=== PATIENT | female | born 1955 | race African-American/Black ===

== ENCOUNTER → 2016-10-15 | Outpatient (CLI) | payer OTHER ==
[2015-05-26 18:12] VITALS: BP 142/91
[~2016-10-15] MED LIST: CLOP75TA PO; GABA600T PO; LISI40TA PO; METO25TA9 PO; NAPR500T3 PO
--- NOTE | 2016-10-15 15:19 | RAD ---
Chest, 2 views, 10/15/2016: History: Cough, COPD Comparison is made to a study from 01/06/2014. The heart size and pulmonary vascularity are normal. A coronary stent is projected over the anterior aspect of the heart. No pulmonary infiltrates are seen. There is no evidence of pleural fluid. IMPRESSION: 1. Coronary artery disease. 2. No acute cardiopulmonary abnormality is detected.
== END | disposition home or self-care (01) ==
LOC: RAD 08:58
PROVIDERS: ATTEND Pediatrics
DX: J44.9 Chronic obstructive pulmonary disease, unspecified (principal); I25.10 Atherosclerotic heart disease of native coronary artery without angina pectoris
CPT/HCPCS: 71020

== ENCOUNTER → 2016-12-17 | Day surgery (SDC) | payer OTHER ==
[~2016-12-17] MED LIST changes: +ALBU0.63 NEB; +ALBUTEROL SULFATE 2.5 MG/3 ML NEBU. IH ONE; +ALBUTEROL SULFATE 2.5 MG/3 ML NEBU. ONE; +ASPI-630 PO; +CYCL10TA2 PO; +HYDR-2762 PO; +HYDR12.58 PO; +IV RINGERS,LACTATED 1000ML 1,000 ML IV SCH; +LIDOCAINE 1% PF 2 ML VIAL. ID PRN; +METO-239 PO; -METO25TA9 PO; +MIDAZOLAM HCL/PF 2 MG/2 ML VIAL. IV PRN; +PROVENTIL HFA6.7 GM IH; +ePHEDrine PF IN SALINE 50 MG/5 ML DISP.SYRIN IV ONE; +fentaNYL PF VIAL 100 MCG/2 ML VIAL IV PRN
[2016-12-17 11:33] LABS: BASO % 1 % (0-3); EOS % 3 % (0-3); HEMATOCRIT 35.8 % (36.0-47.0); HEMOGLOBIN 11.9 g/dL (12.0-15.5); LYMPH # 1.8 x10^3/uL (1.0-4.8); LYMPH % 45 % (24-48); MEAN CORPUSCULAR HEMOGLOBIN 29 pg (25-35); MEAN CORPUSCULAR HGB CONC 33 g/dL (31-37); MEAN CORPUSCULAR VOLUME 87 fL (79-100); MONO % 11 % (0-9); NEUT % 41 % (31-73); PLATELET COUNT 232 x10^3/uL (140-400); RED BLOOD COUNT 4.13 x10^6/uL (3.50-5.40); RED CELL DISTRIBUTION WIDTH 15.7 % (11.5-14.5); WHITE BLOOD COUNT 4.1 x10^3/uL (4.0-11.0)
[2016-12-17 11:43] LABS: PROTHROMBIN TIME PATIENT 12.1 SEC (11.7-14.0)
[2016-12-17 13:15] VITALS: BP 132/85
--- NOTE | 2016-12-17 14:09 | OP ---
DATE OF SURGERY: 12/17/2016 ATTENDING PHYSICIAN: Guera Bateman MD PROCEDURE: Bronchoscopy, bronchoalveolar lavage. INDICATIONS: The patient with recurrent bronchiectasis, undergoing diagnostic bronchoscopy. Risks, benefits and alternatives reviewed with the patient, she consented. DESCRIPTION OF PROCEDURE: Timeout was performed prior to sedation. Vital signs and O2 saturations were maintained within normal limits throughout the procedure. The patient underwent IV titration of Diprivan under anesthesia direction. The patient was sedated with the above medication. Vital signs and O2 saturations were maintained within normal limits throughout the procedure. The bronchoscope was passed through the right naris. The vocal cords were identified moving bilaterally without any dysfunction. There was no evidence of subglottic stenosis. The trachea was normal. The proximal and distal bronchial tubes were ____ inspected. There was no endobronchial lesion. The scope was wedged into the right middle lobe and then bronchoalveolar lavage was performed. The return was clear. FINDINGS: 1. Normal vocal cords. 2. No mucus plugging. 3. No endobronchial lesions. PLAN: We will await the BAL results. The patient is to follow up with Dr. Blevins in the office. KATHIA LEONARDO MD DR: LUCIA/echo JOB#: [id number] / [id number]
== END | disposition home or self-care (01) ==
LOC: SURG 10:54
PROVIDERS: ATTEND Internal Medicine Pulmonary Disease
DX: J47.9 Bronchiectasis, uncomplicated (principal); E78.00 Pure hypercholesterolemia, unspecified; I10 Essential (primary) hypertension; K21.9 Gastro-esophageal reflux disease without esophagitis; F41.9 Anxiety disorder, unspecified; F32.9 Major depressive disorder, single episode, unspecified; D64.9 Anemia, unspecified; J45.909 Unspecified asthma, uncomplicated; Z86.69 Personal history of other diseases of the nervous system and sense organs; Z87.440 Personal history of urinary (tract) infections; Z87.39 Personal history of other diseases of the musculoskeletal system and connective tissue; Z88.0 Allergy status to penicillin; Z88.8 Allergy status to other drugs, medicaments and biological substances; Z79.01 Long term (current) use of anticoagulants
CPT/HCPCS: 31624; 36415; 85025; 85610; 85730; 87205; 94640; J7613; 31622

== ENCOUNTER → 2017-01-11 | Outpatient (CLI) | payer OTHER ==
[2016-12-17 13:15] VITALS: BP 132/85
[~2017-01-11] MED LIST changes: -ALBUTEROL SULFATE 2.5 MG/3 ML NEBU. IH ONE; -ALBUTEROL SULFATE 2.5 MG/3 ML NEBU. ONE; -IV RINGERS,LACTATED 1000ML 1,000 ML IV SCH; -LIDOCAINE 1% PF 2 ML VIAL. ID PRN; -MIDAZOLAM HCL/PF 2 MG/2 ML VIAL. IV PRN; -NAPR500T3 PO; +NAPR500T4 PO; -ePHEDrine PF IN SALINE 50 MG/5 ML DISP.SYRIN IV ONE; -fentaNYL PF VIAL 100 MCG/2 ML VIAL IV PRN
--- NOTE | 2017-01-11 16:19 | RAD ---
Indication hemoptysis. Noncontrast imaging through the chest was performed. No prior CT imaging of the chest is available. Imaging through the upper abdomen shows no acute finding. There is cholelithiasis. The thoracic aorta is grossly unremarkable. There is some coronary artery calcification. Significant mediastinal or hilar adenopathy is not seen. An acute parenchymal infiltrate is not seen. There is no dominant soft tissue mass. There is minimal scarring in the right middle lobe having an appearance similar to an examination 11/27/2008. IMPRESSION: No acute or significant finding seen in the chest Minimal scarring in the right middle lobe PQRS Compliance Statement: One or more of the following individualized dose reduction techniques were utilized for this examination: 1. Automated exposure control 2. Adjustment of the mA and/or kV according to patient size 3. Use of iterative reconstruction technique
== END | disposition home or self-care (01) ==
LOC: CT 13:01
PROVIDERS: ATTEND Internal Medicine Pulmonary Disease
DX: K80.20 Calculus of gallbladder without cholecystitis without obstruction (principal); I25.10 Atherosclerotic heart disease of native coronary artery without angina pectoris; R04.2 Hemoptysis
CPT/HCPCS: 71250

== ENCOUNTER → 2017-11-12 | Outpatient (CLI) | payer OTHER ==
[2016-12-17 13:15] VITALS: BP 132/85
[~2017-11-12] MED LIST changes: +LISI-130 PO; -LISI40TA PO; +NAPR-514 PO; -NAPR500T4 PO
--- NOTE | 2017-11-12 15:52 | RAD ---
EXAM: Right elbow 2 views DATE: 11/12/2017 1:36 PM INDICATION: right sided elbow pain that extends to the hand for 1 month progressively worsening COMPARISON: No Prior FINDINGS/ IMPRESSION: No evidence of acute fracture or dislocation. Right elbow joint degenerative changes are seen with joint space narrowing, subchondral cystic change and osteophytes. No elbow joint effusion. Decreased bone mineral density. Electronically signed by: Yuniel Franco MD (11/12/2017 3:50 PM) [id number]
== END | disposition home or self-care (01) ==
LOC: RAD 13:02
PROVIDERS: ATTEND Pediatrics
DX: M19.021 Primary osteoarthritis, right elbow (principal); I25.2 Old myocardial infarction; I10 Essential (primary) hypertension; K21.9 Gastro-esophageal reflux disease without esophagitis; E78.5 Hyperlipidemia, unspecified; E78.00 Pure hypercholesterolemia, unspecified; D64.9 Anemia, unspecified; J44.9 Chronic obstructive pulmonary disease, unspecified; F41.9 Anxiety disorder, unspecified; F32.9 Major depressive disorder, single episode, unspecified; Z72.0 Tobacco use; Z79.01 Long term (current) use of anticoagulants; Z82.49 Family history of ischemic heart disease and other diseases of the circulatory system; Z80.1 Family history of malignant neoplasm of trachea, bronchus and lung; Z88.0 Allergy status to penicillin; Z88.8 Allergy status to other drugs, medicaments and biological substances
CPT/HCPCS: 73070

== ENCOUNTER → 2017-12-02 | Outpatient (CLI) | payer OTHER ==
[2016-12-17 13:15] VITALS: BP 132/85
[2017-12-02 12:51] LABS: BASO % 1 % (0-3); EOS # 0.1 x10^3/uL (0.0-0.7); EOS % 4 % (0-3); HEMATOCRIT 40.3 % (36.0-47.0); HEMOGLOBIN 13.8 g/dL (12.0-15.5); LYMPH # 1.5 x10^3/uL (1.0-4.8); LYMPH % 40 % (24-48); MEAN CORPUSCULAR HEMOGLOBIN 30 pg (25-35); MEAN CORPUSCULAR HGB CONC 34 g/dL (31-37); MEAN CORPUSCULAR VOLUME 89 fL (79-100); MONO # 0.4 x10^3/uL (0.0-1.1); MONO % 10 % (0-9); NEUT # 1.7 x10^3uL (1.8-7.7); NEUT % 44 % (31-73); PLATELET COUNT 214 x10^3/uL (140-400); RED BLOOD COUNT 4.52 x10^6/uL (3.50-5.40); RED CELL DISTRIBUTION WIDTH 15.3 % (11.5-14.5); WHITE BLOOD COUNT 3.8 x10^3/uL (4.0-11.0)
[2017-12-02 13:11] LABS: ALBUMIN 3.6 g/dL (3.4-5.0); ALBUMIN/GLOBULIN RATIO 0.8 (1.0-1.7); CALCIUM 8.7 mg/dL (8.5-10.1); CREATININE 0.9 mg/dL (0.6-1.0); POTASSIUM 4.2 mmol/L (3.5-5.1); TOTAL BILIRUBIN 0.4 mg/dL (0.2-1.0); TOTAL PROTEIN 7.9 g/dL (6.4-8.2)
[2017-12-02 13:13] LABS: CHOLESTEROL/HDL RATIO 7.7
[2017-12-02 13:21] LABS: FREE T4 0.94 ng/dL (0.76-1.46); THYROID STIM HORMONE (TSH) 1.485 uIU/mL (0.358-3.74)
== END | disposition home or self-care (01) ==
LOC: LAB 12:22
PROVIDERS: ATTEND Pediatrics
DX: E78.2 Mixed hyperlipidemia (principal); I25.2 Old myocardial infarction; E78.00 Pure hypercholesterolemia, unspecified; J44.9 Chronic obstructive pulmonary disease, unspecified; I10 Essential (primary) hypertension; Z95.5 Presence of coronary angioplasty implant and graft; Z87.440 Personal history of urinary (tract) infections; Z87.39 Personal history of other diseases of the musculoskeletal system and connective tissue; Z86.69 Personal history of other diseases of the nervous system and sense organs; Z88.0 Allergy status to penicillin; Z88.8 Allergy status to other drugs, medicaments and biological substances; Z80.1 Family history of malignant neoplasm of trachea, bronchus and lung; Z82.49 Family history of ischemic heart disease and other diseases of the circulatory system
CPT/HCPCS: 36415; 80053; 80061; 84439; 84443; 85025

== ENCOUNTER → 2017-12-03 | Outpatient (CLI) | payer OTHER ==
[2016-12-17 13:15] VITALS: BP 132/85
--- NOTE | 2017-12-03 17:24 | KCIC ---
Examination: DEXA scan HISTORY: History of postmenopausal COMPARISON: None available FINDINGS: The bone mineral density in the lumbar spine is 0.875 g/sq cm with a T score of -1.6 and a Z score of -0.9. The bone mineral density in the distal forearm is 0.508 g/sq cm with a T score of -1.1 and a Z score of 0.3. IMPRESSION: The bone mineral density in the lumbar spine and in the distal forearm is osteopenia. Electronically signed by: Tc Rodrigues MD (12/03/2017 5:20 PM) [id number]
== END | disposition home or self-care (01) ==
LOC: KCIC DEXA 12:07
PROVIDERS: ATTEND Pediatrics
DX: Z13.820 Encounter for screening for osteoporosis (principal); M85.89 Other specified disorders of bone density and structure, multiple sites; K21.9 Gastro-esophageal reflux disease without esophagitis; I25.2 Old myocardial infarction; I10 Essential (primary) hypertension; E78.00 Pure hypercholesterolemia, unspecified; F41.9 Anxiety disorder, unspecified; E78.2 Mixed hyperlipidemia; Z88.0 Allergy status to penicillin; Z78.0 Asymptomatic menopausal state; Z88.8 Allergy status to other drugs, medicaments and biological substances; Z79.01 Long term (current) use of anticoagulants; Z82.49 Family history of ischemic heart disease and other diseases of the circulatory system; Z80.1 Family history of malignant neoplasm of trachea, bronchus and lung; Z87.440 Personal history of urinary (tract) infections; Z87.39 Personal history of other diseases of the musculoskeletal system and connective tissue; Z86.69 Personal history of other diseases of the nervous system and sense organs
CPT/HCPCS: 77080; 77081

== ENCOUNTER 2019-07-02 05:46 | Emergency (ER) | payer MEDICAID, OTHER ==
[~2019-07-02] VITALS: Ht 160 cm; Wt 91.0 kg
[~2019-07-02 05:46] MED LIST changes: -HYDR-2762 PO; +HYDR-2765 PO
[2019-07-02 05:57] VITALS: BP 194/108
--- NOTE | 2019-07-02 06:53 | PHYS DOC ---
Past Medical History Past Medical History: Asthma, High Cholesterol, Heart Disease, Hypertension, Other Additional Past Medical Histor: ? MS,CHRONIC PAIN Past Surgical History: Angioplasty, Other Additional Past Surgical Histo: angioplasty 2011& cardiac stents 2008 (MULTIPLE),CYSTS OVARY & BREASTS Smoking Status: Current Every Day Smoker Alcohol Use: None Drug Use: None General Adult EDM: Chief Complaint: MECHANICAL FALL HPI: HPI: Patient is a 63 year old female with history of hypertension, dyslipidemia, asthma, heart disease, chronic pain who presents via EMS with complaining of fall and ankle pain. Patient states she missed stepped last night and on 1999 and had a fall from 1 stair and landed on left ankle and complaining of pain in her ankle since the injury that did not get better with applying ice and heat and abstain salt. Patient rated her pain 10/10 and denies focal neuro deficit and loss of consciousness. Patient complaining of left ribs pain since injury and rated her pain 6/10 without shortness of breath, fever and chills, cough, nausea and vomiting. Review of Systems: Review of Systems: Constitutional: Denies fever or chills. [] Eyes: Denies change in visual acuity. [] HENT: Denies nasal congestion or sore throat. [] Respiratory: Denies cough or shortness of breath. [] Cardiovascular: Reports chest wall pain GI: Denies abdominal pain, nausea, vomiting, bloody stools or diarrhea. [] : Denies dysuria. [] Musculoskeletal: Denies back pain, reports joint pain. [] Integument: Denies rash. [] Neurologic: Denies headache, focal weakness or sensory changes. [] Endocrine: Denies polyuria or polydipsia. [] Lymphatic: Denies swollen glands. [] Psychiatric: Denies depression or anxiety. [] Heart Score: Risk Factors: Risk Factors: DM, Current or recent (<one month) smoker, HTN, HLP, family history of CAD, obesity. Risk Scores: Score 0 - 3: 2.5% MACE over next 6 weeks - Discharge Home Score 4 - 6: 20.3% MACE over next 6 weeks - Admit for Clinical Observation Score 7 - 10: 72.7% MACE over next 6 weeks - Early Invasive Strategies Current Medications: Current Medications Medications (Trade) Dose Ordered Sig/Darshana Start Time Stop Time Status Last Admin Dose Admin Fentanyl Citrate (Fentanyl 2ml Vial) 50 mcg 1X ONCE 07/02/19 07:00 07/02/19 07:01 07/02/19 06:33 50 MCG Allergies: Allergies: Allergies Coded Allergies Type Severity Reaction Last Updated Verified Penicillins Allergy Intermediate 12/17/16 No simvastatin Allergy Intermediate 12/17/16 No Physical Exam: PE: Constitutional: Well developed, well nourished, no acute distress, non-toxic appearance. [] HENT: Normocephalic, atraumatic, bilateral external ears normal, oropharynx moist, no oral exudates, nose normal. [] Eyes: PERRLA, EOMI, conjunctiva normal, no discharge. [] Neck: Normal range of motion, no tenderness, supple, no stridor. [] Cardiovascular:Heart rate regular rhythm, no murmur [] Lungs & Thorax: Bilateral breath sounds clear to auscultation [] Abdomen: Bowel sounds normal, soft, no tenderness, no masses, no pulsatile masses. [] Skin: Warm, dry, no erythema, no rash. [] Back: No tenderness, no CVA tenderness. [] Extremities: No tenderness, no cyanosis, no clubbing, ROM intact, no edema. [] Neurologic: Alert and oriented X 3, normal motor function, normal sensory function, no focal deficits noted. [] Psychologic: Affect normal, judgement normal, mood normal. [] Current Patient Data: Vital Signs: Vital Signs Date Time Temp Pulse Resp B/P (MAP) Pulse Ox O2 Delivery O2 Flow Rate FiO2 07/02/19 06:33 14 100 Room Air 07/02/19 05:57 97.9 99 194/108 (136) 97.9 EKG: EKG: [] Radiology/Procedures: Radiology/Procedures: [facility] [address] [place] [address] IMAGING REPORT Signed PATIENT: JOY RODRIGUEZACCOUNT: [id number] : 1955 LOCATION: ER AGE: 63 SEX: F EXAM STATUS: PRE ER ORD. PHYSICIAN: VANNA GARNER MD REASON: fall last pm, lt anterior rib pain PROCEDURE: RIBS LEFT AND PA CHEST PA chest and 2 oblique left rib x-rays HISTORY: Left anterior rib pain. Fall. FINDINGS: Heart size normal. Mediastinal silhouette is normal. No pneumothorax, pulmonary opacities or pleural effusions. No evidence of a left rib fracture. IMPRESSION: No acute process. Left ankle x-rays 3 views HISTORY: Fall, left ankle pain and swelling. FINDINGS: 3 mm linear fragment inferior of the lateral malleolus and lateral talus likely a small avulsion fracture from the talus or lateral malleolus. There is also a fracture on the AP view of the medial cortex of the navicular as well. No talus osteochondral lesion. No fracture of the tibial moderate medial malleolus. Soft tissue swelling is noted. There are small linear calcifications along the distal calf which could be vascular calcifications or due to an old infectious or inflammatory process. IMPRESSION: Small avulsion fractures of the medial navicular and lateral of the talus as described above. Electronically signed by: Lefty Martinez MD (07/02/2019 7:32 AM) [id number] DICTATED and SIGNED BY: LEFTY MARTINEZ MD DATE: 07/02/19 0732[facility] [address] [place] [address] IMAGING REPORT Signed PATIENT: JOY RODRIGUEZACCOUNT: [id number] : 1955 LOCATION: ER AGE: 63 SEX: F EXAM STATUS: PRE ER ORD. PHYSICIAN: VANNA GARNER MD REASON: fall last pm, lt ankle pain/swelling PROCEDURE: ANKLE LEFT 3V PA chest and 2 oblique left rib x-rays HISTORY: Left anterior rib pain. Fall. FINDINGS: Heart size normal. Mediastinal silhouette is normal. No pneumothorax, pulmonary opacities or pleural effusions. No evidence of a left rib fracture. IMPRESSION: No acute process. Left ankle x-rays 3 views HISTORY: Fall, left ankle pain and swelling. FINDINGS: 3 mm linear fragment inferior of the lateral malleolus and lateral talus likely a small avulsion fracture from the talus or lateral malleolus. There is also a fracture on the AP view of the medial cortex of the navicular as well. No talus osteochondral lesion. No fracture of the tibial moderate medial malleolus. Soft tissue swelling is noted. There are small linear calcifications along the distal calf which could be vascular calcifications or due to an old infectious or inflammatory process. IMPRESSION: Small avulsion fractures of the medial navicular and lateral of the talus as described above. Electronically signed by: Lefty Martinez MD (07/02/2019 7:32 AM) [id number] DICTATED and SIGNED BY: LEFTY MARTINEZ MD DATE: 07/02/19731 [facility] [address] [place] [address] IMAGING REPORT Signed PATIENT: JOY RODRIGUEZACCOUNT: [id number] : 1955 LOCATION: ER AGE: 63 SEX: F EXAM STATUS: PRE ER ORD. PHYSICIAN: VANNA GARNER MD REASON: fall last pm, lt ankle pain/swelling PROCEDURE: ANKLE LEFT 3V PA chest and 2 oblique left rib x-rays HISTORY: Left anterior rib pain. Fall. FINDINGS: Heart size normal. Mediastinal silhouette is normal. No pneumothorax, pulmonary opacities or pleural effusions. No evidence of a left rib fracture. IMPRESSION: No acute process. Left ankle x-rays 3 views HISTORY: Fall, left ankle pain and swelling. FINDINGS: 3 mm linear fragment inferior of the lateral malleolus and lateral talus likely a small avulsion fracture from the talus or lateral malleolus. There is also a fracture on the AP view of the medial cortex of the navicular as well. No talus osteochondral lesion. No fracture of the tibial moderate medial malleolus. Soft tissue swelling is noted. There are small linear calcifications along the distal calf which could be vascular calcifications or due to an old infectious or inflammatory process. IMPRESSION: Small avulsion fractures of the medial navicular and lateral of the talus as described above. Electronically signed by: Lefty Martinez MD (07/02/2019 7:32 AM) [id number] DICTATED and SIGNED BY: LEFTY MARTINEZ MD DATE: 07/02/19731 Course & Med Decision Making: Course & Med Decision Making Pertinent Imaging studies reviewed. (See chart for details) Evaluation of patient inertial 63-year-old female patient with a fall and injury to left ankle and left rib. Patient had moderate edema of left lateral malleolus and x-ray showed small avulsion fractures of the medial navicular and lateral of the talus. Patient had blood pressure of more than 200 and stated she did not take her blood pressure medication but did not want to take medicat ion in ER to decrease her blood pressure down. Patient was yelling and asking for pain medication and stated fentanyl did not help for her pain. Patient treated with morphine subcutaneous with partial improvement of her pain. Dr. Branch was consulted at 0 811 and recommended a splint and crutches and follow- up as outpatient. Patient had lots of attitude against me and other staff but finally she apologized for her behavior. Posterior splint was placed and crutches was provided. Patient was advised to follow-up with her primary care physician and orthopedic physician for pain management and treatment of the fracture that is a nonsurgical treatment. I've spoken with the patient and/or caregivers. I've explained the patient's condition, diagnosis and treatment plan based on information available to me at this time. I've answered the patient's and/or caregivers questions and addressed any concerns. The patient and/or caregivers have a good understanding the patient's diagnosis, condition and treatment plan as can be expected at this point. Vital signs have been stabilized. The patient's condition is stable for discharge from the emergency department. The patient will pursue further outpatient evaluation with her primary care provider or other designated consulting physician as outlined in the discharge instructions. Patient and/or caregivers are agreeable to this plan of care and f ollow-up instructions have been explained in detail. The patient and/or caregivers have received these instructions in written format and expressed understanding of these discharge instructions. The patient and her caregivers are aware that if any significant change in condition or worsening of symptoms should prompt him to immediately return to this of the closest emergency depart ment. If an emergent department is not readily available I would encourage him to call 911. Van Disclaimer: Van Disclaimer: This electronic medical record was generated, in whole or in part, using a voice recognition dictation system. Departure Departure Impression: Primary Impression: Fracture, talus closed Qualified Codes: S92.102S - Unspecified fracture of left talus, sequela Additional Impressions: Navicular fracture of ankle Qualified Codes: S92.255S - Nondisplaced fracture of navicular [scaphoid] of left foot, sequela Left ankle sprain Qualified Codes: S93.402A - Sprain of unspecified ligament of left ankle, initial encounter Chest wall injury Qualified Codes: S29.9XXD - Unspecified injury of thorax, subsequent encounter Fall down stairs Qualified Codes: W10.8XXA - Fall (on) (from) other stairs and steps, initial encounter Accelerated hypertension Non-compliant behavior Disposition: HOME, SELF-CARE (At 0830) Condition: IMPROVED Referrals: MICHAEL GAY MD (PCP) VAZQUEZ BRANCH II, MD Patient Instructions: Ankle Fracture, Ankle Sprain, Blunt Chest Trauma, Fall Prevention and Home Safety, How to Take Your Blood Pressure, [id number], Managing Your High Blood Pressure Additional Instructions: Apply ice on the affected area Follow-up with your primary care physician in 2-3 days Return to ER if not getting better Follow-up with on-call orthopedic physician in 3 to 5 days Scripts Hydrocodone/Apap 5-325 (NORCO 5-325 TABLET) 1 Each Tablet 1 TAB PO PRN Q6HRS PRN for PAIN, #14 TAB 0 Refills Prov: VANNA GARNER MD 07/02/19 VANNA GARNER MD Jul 02, 2019 06:53
[2019-07-02] MEDS ORDERED: fentaNYL PF VIAL 100 MCG/2 ML VIAL IM ONE (07:00)
--- NOTE | 2019-07-02 07:35 | RAD ---
PA chest and 2 oblique left rib x-rays HISTORY: Left anterior rib pain. Fall. FINDINGS: Heart size normal. Mediastinal silhouette is normal. No pneumothorax, pulmonary opacities or pleural effusions. No evidence of a left rib fracture. IMPRESSION: No acute process. Left ankle x-rays 3 views HISTORY: Fall, left ankle pain and swelling. FINDINGS: 3 mm linear fragment inferior of the lateral malleolus and lateral talus likely a small avulsion fracture from the talus or lateral malleolus. There is also a fracture on the AP view of the medial cortex of the navicular as well. No talus osteochondral lesion. No fracture of the tibial moderate medial malleolus. Soft tissue swelling is noted. There are small linear calcifications along the distal calf which could be vascular calcifications or due to an old infectious or inflammatory process. IMPRESSION: Small avulsion fractures of the medial navicular and lateral of the talus as described above. Electronically signed by: Jhony Martinez MD (07/02/2019 7:32 AM) [id number]
[2019-07-02] MEDS ORDERED: HYDROcodone/APAP 5/325MG 1 TAB TABLET PO ONE (07:45)
[2019-07-02] MEDS ORDERED: MORPHINE SULFATE 10 MG/ML VIAL. ONE (08:07)
[2019-07-02] MEDS ORDERED: MORPHINE SULFATE 10 MG/ML VIAL. SQ ONE (08:15)
[2019-07-02] MEDS ORDERED: HYDR-3164 PO (08:17)
== END 2019-07-02 09:13 | disposition home or self-care (01) ==
LOC: ER 05:46
DX: S92.255A Nondisplaced fracture of navicular [scaphoid] of left foot, initial encounter for closed fracture (principal); S93.402A Sprain of unspecified ligament of left ankle, initial encounter; S29.9XXA Unspecified injury of thorax, initial encounter; I11.9 Hypertensive heart disease without heart failure; E78.00 Pure hypercholesterolemia, unspecified; J45.909 Unspecified asthma, uncomplicated; G89.29 Other chronic pain; F17.200 Nicotine dependence, unspecified, uncomplicated; Z95.5 Presence of coronary angioplasty implant and graft; Z88.0 Allergy status to penicillin; Z88.8 Allergy status to other drugs, medicaments and biological substances; W10.8XXA Fall (on) (from) other stairs and steps, initial encounter; Y93.89 Activity, other specified; Y92.89 Other specified places as the place of occurrence of the external cause; Y99.8 Other external cause status
CPT/HCPCS: 29515; 71101; 73610; 96372; 99284; J2270; J3010; 96374; 96375